=== PATIENT | female | born 1985 | race Caucasian/White ===

== ENCOUNTER → 2017-10-21 | Outpatient (CLI) | payer BC | LOC: FIMAGING 13:41 | PROVIDERS: ATTEND Advanced Practice Midwife | DX: O36.62X0 Maternal care for excessive fetal growth, second trimester, not applicable or unspecified (principal); O09.522 Supervision of elderly multigravida, second trimester; Z82.49 Family history of ischemic heart disease and other diseases of the circulatory system; Z3A.19 19 weeks gestation of pregnancy ==

== ENCOUNTER 2018-03-14 20:49 | Inpatient (IN) | payer BC ==
[2018-03-14] MEDS ORDERED: LIDOCAINE 1% 300 MG/30 ML SDV ONE (21:33)
[2018-03-14] MEDS ORDERED: OLIVE OIL 118 ML BTL ONE (21:34)
[2018-03-14] MEDS ORDERED: MISOPROSTOL 200 MCG TAB ONE (21:34)
[2018-03-14] MEDS ORDERED: TERBUTALINE SULFATE 1 MG/ML VIAL ONE (21:34)
[2018-03-14] MEDS ORDERED: AMMONIA AROMATIC 1 EACH AMP IH ONE (21:34)
[2018-03-14] MEDS ORDERED: OXYTOCIN 10 UNIT/ML VIAL ONE (21:34)
[2018-03-14 21:35] LABS: PLATELET COUNT 250 10^3/uL (150-400)
[2018-03-14] MEDS ORDERED: LR 1,000 ML IV PRN (21:52)
[2018-03-14] MEDS ORDERED: LIDOCAINE 1% 300 MG/30 ML SDV SC PRN (21:52)
[2018-03-14] MEDS ORDERED: TERBUTALINE SULFATE 1 MG/ML VIAL IV PRN (21:52)
[2018-03-14] MEDS ORDERED: OLIVE OIL 118 ML BTL MISC PRN (21:52)
[2018-03-14] MEDS ORDERED: OXYTOCIN/RINGERS LACTATE 1,000 ML IV PRN (21:52)
[2018-03-14] MEDS ORDERED: IBUPROFEN 600 MG TAB PO PRN (21:52)
[2018-03-14] MEDS ORDERED: EPSOM SALT 454 GM TP PRN (21:52)
[2018-03-14] MEDS ORDERED: MISOPROSTOL 200 MCG TAB PR PRN (21:52)
[2018-03-14] MEDS ORDERED: HYDROCORTISONE 0.5% CREAM TP PRN (22:10)
[2018-03-14] MEDS ORDERED: oxyCODONE IR 5 MG TAB PO PRN (22:10)
[2018-03-14] MEDS ORDERED: SIMETHICONE 80 MG TAB CHEW PO PRN (22:10)
[2018-03-14] MEDS ORDERED: DOCUSATE SODIUM 100 MG CAP PO PRN (22:10)
--- NOTE | 2018-03-14 22:13 | PDGENHP ---
History and Physical History and Physical: Care: [facility] HPI: Patient is a 33yo with IUP@ 39-5weeks that presents to L&D with complaints of SROM @ 1430, had some contractions. EDC: 03/16/18 which is based on LMP: 06/09/17 which is known and consistent with Ultrasound at 8 weeks. Her is complicated by: AMA, FOB family h/o CHD (level 2 NL), elevated hexaminidase A Review of Systems: Constitutional: Denies any fever, chills, or fatigue HEENT: denies any visual changes, difficulty swallowing, hearing loss Cardiovascular: Denies any chest pain, palpitations, leg swelling Respiratory: denies any cough, wheezing, or shortness of breathe GI: Denies any nausea, vomiting, diarrhea, constipation : denies any dysuria, urgency, frequency, vaginal bleeding Musculoskeletal: denies any muscle or bone pain Skin: denies any rashes Neuro: denies any headache, seizures, lightheadedness, dizziness, or loss of consciousness Psychiatric: denies any depression, anxiety, or SI/HI thoughts HISTORY: Previous OB history: ectopic 2009, 2013 Past medical history: elevated hexaminidase A, HSV 1 Past surgical history: left salpingectomy, oral surgery Social: Denies any alcohol, tobacco, or drug use. Family history: Not relevant Medications: PNV Allergies (list reaction): NKDA LABS: Rh: O+ ABS: Neg Rubella: Immune HbsAg: NR HIV: NR VDRL: NR 1hr: 104 GC: Neg Chlamydia: Neg Pap: Normal GBS: negative BMI: (prepreg) 24 PHYSICAL EXAM: Constitutional: WN, A&Ox3 HEENT: normocephalic atraumatic, supple Skin: Warm, dry, intact Heart: RRR, no murmur Chest: CTA-B Abdomen: Soft, nontender, gravid SVE: 5/70/-2 Extremities: no edema, negative homans sign Neuro: grossly normal Psych: normal affect assessment: FHT baseline 120 +accels, no decels, moderate variability Contractions: toco q irregular Assessment: 1) 33yo with IUP@39-5wks 2) SROM- clear 3) GBS negative 4) Cat 1 FHR tracing Plan: 1) Admit to L&D 2) anticipate Today's visit was approximately 30 min, of which >50% of visit 20 min, was spent face to face with pt on direct counseling/coordination of care.
[2018-03-14] MEDS: IBUPROFEN 600 MG TAB PO SCH (22:16)
--- NOTE | 2018-03-14 22:22 | OBDEL ---
Info Type: Vaginal Presentation at Delivery: Vertex L&D Analgesia/Anesthesia Type: None GBS+: No Indications for Delivery: Spontaneous Labor, SROM Vaginal Delivery - Delivery Provider Delivery Physician/CNM: Joanne Weaver - Labor and Delivery Onset of Contractions Date: 03/14/18 Onset of Contractions Time: 20:00 Onset of Contractions Type: Spontaneous Rupture of Membranes Date: 03/14/18 Rupture of Membranes Time: 14:30 Rupture of Membranes Type: Spontaneous Amniotic Fluid Color: Clear Dilation Complete Date: 03/14/18 Dilation Complete Time: 21:38 Placenta Delivery Date: 03/14/18 Placenta Delivery Time: 21:46 Total Hours of Labor: 1 Non-surgical Procedures: FSE Vaginal Sponge Count Correct: Yes Vaginal Needle Count Correct: Yes Vaginal Sweep Performed: Yes EBL: 200 Delivery Events: Nuchal Cord Delivery Comment: SROM @ 1430, SVE @ 2115, SROM of forebag and cord noted in front of head. I was able to reduce the cord behind the head, pt was repositioned multiple times. Pt was noted to be making rapid cervical change. prolong decel noted. Cord Gases: Cord Gases Cord Blood PCO2 74 mmHg (37-60) H 03/14/18 21:40 Cord Base Excess -9.9 mEq/L (-13.6--3.2) 03/14/18 21:40 Cord ABG pH 7.11 (7.10-7.37) 03/14/18 21:40 Cord VBG pH 7.32 (7.20-7.42) 03/14/18 21:40 Operative Report - Delivery Cord Gases: Cord Gases Cord Blood PCO2 74 mmHg (37-60) H 03/14/18 21:40 Cord Base Excess -9.9 mEq/L (-13.6--3.2) 03/14/18 21:40 Cord ABG pH 7.11 (7.10-7.37) 03/14/18 21:40 Cord VBG pH 7.32 (7.20-7.42) 03/14/18 21:40 [place] Data DAV: 03/16/18 Gestational Age: 39 week(s) and 5 day(s) [place] Delivery Date: 03/14/18 Delivery Time: 21:40 Sex of : Male Score (1 Min): 7 Score (5 Min): 9 ICD10 Worksheet Patient Problems: Problems Problem Status Onset Precipitous delivery Acute (spontaneous vaginal delivery) Acute - ICD10 Problem Qualifiers (1) Precipitous delivery
[2018-03-15] MEDS: ACETAMINOPHEN 325 MG TAB PO SCH ×5 (02:47→21:45)
[2018-03-15] MEDS: IBUPROFEN 600 MG TAB PO SCH ×3 (05:21→18:07)
--- NOTE | 2018-03-15 09:25 | OBPP ---
Progress Note Assessment/Plan: Assessment: [id number] s/p PPD#1 Plan: routine PP care support PRN plan d/c home in the morning 03/15/18 09:21 Subjective/ Course: 03/15/18 09:22 pt doing well, she desires d/c home today, but agrees to stay until 24hr check for baby- so will plan to leave in the AM. She denies any pain or heavy bleeding. She is without difficulty. FOB and family @ BS. Objective: 03/15/18 00:16 03/15/18 00:16 Patient ABO/Rh O POSITIVE 03/14/18 21:29 Total Bilirubin 0.4 mg/dL (0.1-1.4) 03/15/18 00:16 AST 29 IU/L (14-46) 03/15/18 00:16 ALT 22 IU/L (9-52) 03/15/18 00:16 Temp Pulse Resp BP Pulse Ox 37.1 C 67 16 130/82 H 98 03/15/18 08:00 03/15/18 08:00 03/15/18 08:00 03/15/18 08:00 03/15/18 08:00 Uterine Position/Fundal Height: Umbilicus -1, Midline Uterine Tone: Firm Physical Exam - Physical Exam General Appearance: WD/WN, alert, no apparent distress Abdomen: non-tender, soft Extremities: non-tender Skin: normal color, warm/dry Neuro/Psych: alert, normal mood/affect, oriented x 3
[2018-03-16] MEDS: IBUPROFEN 600 MG TAB PO SCH ×2 (00:27→06:31)
[2018-03-16] MEDS: ACETAMINOPHEN 325 MG TAB PO SCH (04:15)
[2018-03-16 07:44] VITALS: BP 111/69
--- NOTE | 2018-03-16 11:07 | OBGCSDC ---
General Delivery Information - General Info : 3 Para: 2 Abortions: 0 Type: Vaginal L&D Analgesia/Anesthesia Type: None Admission Date: 03/14/18 Labs: Patient ABO/Rh O POSITIVE 03/14/18 21:29 Hct 39.1 % (38.0-47.0) 03/15/18 00:16 - Hospital Course : 03/15/18 09:22 pt doing well, she desires d/c home today, but agrees to stay until 24hr check for baby- so will plan to leave in the AM. She denies any pain or heavy bleeding. She is without difficulty. FOB and family @ BS. 03/16/18 0830 S) Pt doing well, reports min pain and bleeding. she is ambulating and voiding without difficulty. She is . She desires discharge home today. O) VSS, afebrile constitutional: WNF, A&Ox3 HEENT: normocephalic, atraumatic, supple Heart: RRR, No murmur Chest: CTA-B Breasts: soft, nontender, not engorged, nipples intact Abdomen: Soft, nontender Uterus: Firm at U-2 Lochia: Minimal rubra Perineum: Intact, healing well Extremities: Trace edema, and negative Renaldo's sign Neuro: Grossly normal A) 33-year-old S/P PPD#2 P) Discharge home today Continue Pelvic rest x6wks Discussed danger signs (infection, preeclampsia, depression, heavy bleeding, etc ) RTO in 2/4/6 weeks Vaginal - Delivery Provider Delivery Physician/CNM: Joanne Weaver - Diagnosis Labor: Spontaneous Rupture of Membranes Type: Spontaneous Amniotic Fluid Color: Clear Delivery Events: Nuchal Cord - Procedures Non-surgical Procedures: FSE - Delivery Non-surgical Procedures: FSE EBL: 200 [place] Data DAV: 03/16/18 Gestational Age: 40 week(s) and 0 day(s) [place] Delivery Date: 03/14/18 Delivery Time: 21:40 Sex of : Male [place] Weight (gm): 3592 kg Score (1 Min): 7 Score (5 Min): 9 Discharge Information - Discharge Information Prescriptions: Ibuprofen [Motrin (*)] 600 mg PO Q6H #60 tab Condition: Good
== END 2018-03-16 12:05 | disposition home or self-care (01) | DRG 807 ==
LOC: OBSVTOIN 20:49 → FLD 20:49 → FOB 03-15 02:16
PROVIDERS: ADMIT Advanced Practice Midwife; ATTEND Advanced Practice Midwife
PROC: 10E0XZZ Delivery of Products of Conception, External Approach (ICD-10-PCS; principal; 2018-03-14)
DX: O69.81X0 Labor and delivery complicated by cord around neck, without compression, not applicable or unspecified (principal); Z3A.39 39 weeks gestation of pregnancy; Z37.0 Single live birth
CPT/HCPCS: J2590; J3105